=== PATIENT | female | born 1990 | race African-American/Black ===

== ENCOUNTER 2020-09-11 16:29 | Emergency (ER) | payer OTHER ==
[~2020-09-11] VITALS: Ht 157.5 cm; Wt 67.1 kg
[2020-09-11] MEDS ORDERED: CEFTRIAXONE SOD 1 GM VIAL IM ONE (19:45)
[2020-09-11] MEDS ORDERED: ONDANSETRON HCL 4 MG ORAL DISINTEGRATING TAB PO ONE (19:45)
[2020-09-11] MEDS ORDERED: KETOROLAC TROMETHAMINE 60 MG/2 ML VIAL IM ONE (19:45)
[2020-09-11] MEDS ORDERED: PREDNISONE20 MG PO (19:54)
[2020-09-11] MEDS ORDERED: DICYCLOMINE HCL20 MG PO (19:54)
[2020-09-11] MEDS ORDERED: BACTRIM DS TAB1 EACH PO (19:54)
[2020-09-11] MEDS ORDERED: ONDANSETRON ODT8 MG SL (19:54)
== END 2020-09-11 20:27 | disposition home or self-care (01) ==
LOC: FSED 17:49
DX: R10.30 Lower abdominal pain, unspecified (principal); N30.00 Acute cystitis without hematuria; R11.0 Nausea; R51.9 Headache, unspecified; F17.210 Nicotine dependence, cigarettes, uncomplicated
CPT/HCPCS: 81003; 81025; 87086; 99283; J0696; J1885; Q0162